=== PATIENT | female | born 2000 | race Caucasian/White ===

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

== ENCOUNTER 2023-04-17 09:43 | Emergency (ER) | payer MEDICAID, OTHER ==
[~2023-04-17] VITALS: Ht 157.5 cm; Wt 64.0 kg
[2023-04-17 09:53] VITALS: BP 116/74; PULSE 83; RESP 16; TEMP 98; O2SAT 99
[2023-04-17] MEDS ORDERED: KETOROLAC 15 MG/ML VIAL IM ONE (10:45)
[2023-04-17] MEDS ORDERED: IBUP-2213 PO (11:11)
[2023-04-17] MEDS ORDERED: LIDO100S PO (11:11)
[2023-04-17] MEDS ORDERED: DEXA0.5E43 PO (11:19)
[2023-04-17 11:30] VITALS: BP 120/74; PULSE 80; RESP 16; TEMP 98; O2SAT 99
== END 2023-04-17 11:30 | disposition home or self-care (01) ==
LOC: MED 09:43
DX: R68.84 Jaw pain (principal); K12.0 Recurrent oral aphthae; Z79.899 Other long term (current) drug therapy
CPT/HCPCS: 81025; 96372; 99283; J1885